=== PATIENT | female | born 1990 | race Caucasian/White ===

== ENCOUNTER 2020-02-20 14:05 | Inpatient (IN) | payer BC ==
[~2020-02-20] VITALS: Ht 165.1 cm; Wt 90.0 kg
[2020-02-27] MEDS ORDERED: OXYTOCIN 30U/ 0.9% NaCL 500ML 500 ML IV ONE (05:06)
[2020-02-27] MEDS ORDERED: OXYTOCIN 30U/ 0.9% NaCL 500ML 500 ML IV PRN (05:06)
[2020-02-27] MEDS ORDERED: LACTATED RINGERS 1,000 ML IV SCH ×2 (05:06→13:42)
[2020-02-27] MEDS ORDERED: D5%-LACTATED RINGERS 1,000 ML IV SCH (05:06)
[2020-02-27 05:13] VITALS: BP 108/65
[2020-02-27] MEDS ORDERED: SODIUM CITRATE/CITRIC ACID 30 ML UDC PO PRN (05:30)
[2020-02-27] MEDS ORDERED: TERBUTALINE 1 MG/ML, 1ML SQ PRN (05:30)
[2020-02-27] MEDS ORDERED: FENTANYL PF 100 MCG/2ML IV PRN (05:30)
[2020-02-27] MEDS ORDERED: METOCLOPRAMIDE 5 MG/ML, 2ML IVPush PRN (05:30)
[2020-02-27] MEDS ORDERED: PLEASE ENTER ALLERGIES MC SCH (05:30)
[2020-02-27] MEDS ORDERED: TERBUTALINE 1 MG/ML, 1ML IVPush PRN (05:30)
[2020-02-27] MEDS ORDERED: FENTANYL PF 100 MCG/2ML IVPush PRN (05:30)
[2020-02-27] MEDS ORDERED: NEWBORN KIT ONE (05:37)
[2020-02-27] MEDS ORDERED: MISOPROSTOL 200 MCG TABLET ONE (06:17)
[2020-02-27] MEDS ORDERED: MISOPROSTOL 25 MCG TABLET ONE (06:17)
[2020-02-27] MEDS ORDERED: LIDOCAINE 1%, 20ML ONE ×2 (06:17→12:16)
[2020-02-27 06:19] LABS: BASOPHILS # (AUTO) 0.03 x10^3/uL (0-0.1); BASOPHILS % (AUTO) 0 % (0-1); EOSINOPHILS # (AUTO) 0.14 x10^3/uL (0-0.4); EOSINOPHILS % (AUTO) 2 % (1-7); LYMPHOCYTES # (AUTO) 1.85 x10^3/uL (1-3.4); LYMPHOCYTES % (AUTO) 25 % (22-44); MD NO; MEAN CORPUSCULAR HEMOGLOBIN 29.9 pg (27.0-34.8); MEAN PLATELET VOLUME 8.1 fL (7.4-10.4); MONOCYTES # (AUTO) 0.49 x10^3/uL (0.2-0.8); MONOCYTES % (AUTO) 7 % (2-9); NEUTROPHILS # (AUTO) 5.03 x10^3/uL (1.8-6.8); NEUTROPHILS % (AUTO) 67 % (42-75); PLATELET COUNT 222 x10^3/uL (130-400); RED BLOOD COUNT 4.26 x10^6/uL (3.82-5.3); RED CELL DISTRIBUTION WIDTH 12.8 % (9.6-15.2)
[2020-02-27] MEDS ORDERED: MISOPROSTOL 25 MCG TABLET VG PRN (07:30)
[2020-02-27] MEDS ORDERED: TERBUTALINE 1 MG/ML, 1ML ONE (11:34)
[2020-02-27] MEDS ORDERED: FENTANYL/BUPIV./NS/PF 250 ML EPIDCONT ONE ×2 (12:04→12:16)
[2020-02-27] MEDS ORDERED: LIDOCAINE/PF 1.5%-EPI 1:200K, 30ML ONE (12:16)
[2020-02-27] MEDS ORDERED: FENTANYL/BUPIV./NS/PF 250 ML EPIDCONT SCH (13:42)
[2020-02-27] MEDS ORDERED: NALOXONE 0.4 MG/ML, 1ML IVPush PRN (14:00)
[2020-02-27] MEDS ORDERED: EPHEDRINE 50 MG/ML, 1ML IVPush PRN (14:00)
[2020-02-27] MEDS ORDERED: LACTATED RINGERS 1,000 ML IVBOLUS PRN (14:00)
[2020-02-27] MEDS: OXYTOCIN 30U/ 0.9% NaCL 500ML 500 ML IV SCH (16:27)
[2020-02-27] MEDS ORDERED: SIMETHICONE 80 MG CHEW TAB PO PRN (16:30)
[2020-02-27] MEDS ORDERED: OXYcodone IR 5MG TABLET PO PRN (16:30)
[2020-02-27] MEDS ORDERED: ACETAMINOPHEN 325 MG TABLET PO PRN (16:30)
[2020-02-27] MEDS ORDERED: MISOPROSTOL 200 MCG TABLET PR PRN (16:30)
[2020-02-27] MEDS ORDERED: MEASLES,MUMPS&RUBELLA VACC/PF 0.5 ML SQ-VACC PRN (16:30)
[2020-02-27] MEDS ORDERED: ONDANSETRON 2MG/ML, 2ML IV PRN (16:30)
[2020-02-27] MEDS ORDERED: IBUPROFEN 800 MG TABLET ONE (16:46)
[2020-02-27] MEDS: IBUPROFEN 800 MG TABLET PO PRN (16:48)
[2020-02-27] MEDS ORDERED: OXYTOCIN 30U/ 0.9% NaCL 500ML 500 ML ONE (19:27)
[2020-02-27 20:00] VITALS: BP 111/67
[2020-02-28 00:30] VITALS: BP 110/70
[2020-02-28 00:53] LABS: BASOPHILS # (AUTO) 0.03 x10^3/uL (0-0.1); BASOPHILS % (AUTO) 0 % (0-1); EOSINOPHILS # (AUTO) 0.03 x10^3/uL (0-0.4); EOSINOPHILS % (AUTO) 0 % (1-7); LYMPHOCYTES # (AUTO) 1.83 x10^3/uL (1-3.4); LYMPHOCYTES % (AUTO) 15 % (22-44); MD NO; MEAN CORPUSCULAR HEMOGLOBIN 29.5 pg (27.0-34.8); MEAN CORPUSCULAR HGB CONC 32.6 g/dL (32.4-35.8); MEAN PLATELET VOLUME 7.9 fL (7.4-10.4); MONOCYTES # (AUTO) 0.71 x10^3/uL (0.2-0.8); MONOCYTES % (AUTO) 6 % (2-9); NEUTROPHILS # (AUTO) 9.48 x10^3/uL (1.8-6.8); NEUTROPHILS % (AUTO) 79 % (42-75); PLATELET COUNT 221 x10^3/uL (130-400); RED BLOOD COUNT 4.28 x10^6/uL (3.82-5.3)
[2020-02-28] MEDS: DOCUSATE 100 MG CAPSULE PO PRN ×2 (00:58→08:00)
[2020-02-28] MEDS: IBUPROFEN 800 MG TABLET PO PRN ×3 (00:58→18:43)
[2020-02-28] MEDS: OXYTOCIN 30U/ 0.9% NaCL 500ML 500 ML IV SCH ×3 (02:27→22:27)
[2020-02-28] MEDS ORDERED: RHOGAM FROM BLOOD BANK 1 NOTE EA IM/IV ONE (03:30)
[2020-02-28 04:00] VITALS: BP 116/74
[2020-02-28 07:40] VITALS: BP 122/77
[2020-02-28] MEDS ORDERED: PRENATAL VIT/IRON/FA 1 EACH TABLET PO SCH (09:00)
[2020-02-28 12:30] VITALS: BP 111/76
[2020-02-28 16:10] VITALS: BP 114/74
[2020-02-28 20:20] VITALS: BP 115/79
[2020-02-29] MEDS: IBUPROFEN 800 MG TABLET PO PRN (04:47)
[2020-02-29 07:40] VITALS: BP_SYST 111; BP_SYST 115; BP_DIAS 73; BP_DIAS 79
[2020-02-29] MEDS ORDERED: IBUP-1222 PO ×2 (10:01→10:02)
== END 2020-02-29 12:17 | disposition home or self-care (01) | DRG 807 ==
LOC: LDIP 02-27 04:42 → 2NW 02-27 20:00
PROVIDERS: ADMIT Student in an Organized Health Care Education/Training Program; ATTEND Student in an Organized Health Care Education/Training Program
PROC: 10E0XZZ Delivery of Products of Conception, External Approach (ICD-10-PCS; principal; 2020-02-27)
PROC: 0KQM0ZZ Repair Perineum Muscle, Open Approach (ICD-10-PCS; 2020-02-27)
PROC: 3E0R3BZ Introduction of Anesthetic Agent into Spinal Canal, Percutaneous Approach (ICD-10-PCS; 2020-02-27)
PROC: 00HU33Z Insertion of Infusion Device into Spinal Canal, Percutaneous Approach (ICD-10-PCS; 2020-02-27)
PROC: 3E0234Z Introduction of Serum, Toxoid and Vaccine into Muscle, Percutaneous Approach (ICD-10-PCS; 2020-02-27)
DX: O48.0 Post-term pregnancy (principal); Z37.0 Single live birth; O26.893 Other specified pregnancy related conditions, third trimester; O77.0 Labor and delivery complicated by meconium in amniotic fluid; O76 Abnormality in fetal heart rate and rhythm complicating labor and delivery; O70.1 Second degree perineal laceration during delivery; Z82.49 Family history of ischemic heart disease and other diseases of the circulatory system; Z83.3 Family history of diabetes mellitus; Z3A.41 41 weeks gestation of pregnancy; Z67.91 Unspecified blood type, Rh negative
CPT/HCPCS: 36415; J3490; 82803; 85025; 85461; 86592; 86850; 86900; 87635; G0378; J2790; J3010; J3105; J7120